=== PATIENT | female | born 1990 ===

== ENCOUNTER 2018-01-18 07:42 | Emergency (ER) | payer OTHER ==
--- NOTE | 2018-01-18 08:33 | C.PDOC ---
History Of Present Illness Angela Roberts is a 27 year old female, lmp 11/13, whose past medical history includes Gravada: 2, Para: 1, who presents to the ED complaining of intermittent suprapubic abdominal pain since this morning. Patient reports she took a home test and was positive. Patient denies vaginal bleeding, urinary symptoms, fever, shortness of breath, chest pain, or other complaints. Time Seen by Provider: 01/18/18 07:53 Chief Complaint (Nursing): Abdominal Pain History Per: Patient History/Exam Limitations: no limitations Onset/Duration Of Symptoms: Hrs (this morning) Current Symptoms Are (Timing): Still Present Location Of Pain/Discomfort: Suprapubic Radiation Of Pain To:: None Associated Symptoms: denies: Fever, Vomiting, Urinary Symptoms Exacerbating Factors: None Alleviating Factors: None Recent travel outside of the [place]: No Abnormal Vaginal Bleeding: No : 2 Para: 1 Past Medical History Reviewed: Historical Data, Nursing Documentation, Vital Signs Vital Signs: Last Vital Signs Temp 98.1 F 01/18/18 12:40 Pulse 75 01/18/18 12:40 Resp 16 01/18/18 12:40 BP 108/78 01/18/18 12:40 Pulse Ox 98 01/18/18 12:40 Family History: States: Unknown Family Hx - Social History Hx Alcohol Use: No Hx Substance Use: No - Immunization History Hx Tetanus Toxoid Vaccination: No Hx Influenza Vaccination: No Hx Pneumococcal Vaccination: No Review Of Systems Constitutional: Negative for: Fever Cardiovascular: Negative for: Chest Pain Respiratory: Negative for: Shortness of Breath Gastrointestinal: Positive for: Abdominal Pain (suprapubic pain ). Negative for : Vomiting Genitourinary: Negative for: Frequency, Vaginal Bleeding Musculoskeletal: Negative for: Back Pain Skin: Negative for: Rash Neurological: Negative for: Headache Physical Exam - Physical Exam Appears: Well, Non-toxic, No Acute Distress Skin: Normal Color, Warm, Dry Head: Atraumatic, Normacephalic Eye(s): bilateral: Normal Inspection, PERRL, EOMI Cardiovascular: Rhythm Regular, No Murmur Respiratory: Normal Breath Sounds, No Rales, No Rhonchi, No Wheezing Gastrointestinal/Abdominal: Bowel Sounds (Normal), Tenderness (tenderness on suprapubic and lower pelvic region), No Distention, No Guarding, No Rebound Neurological/Psych: Oriented x3, Normal Speech ED Course And Treatment - Laboratory Results Result Diagrams: 01/18/18 09:22 01/18/18 09:22 O2 Sat by Pulse Oximetry: 99 (room air) Pulse Ox Interpretation: Normal Medical Decision Making Medical Decision Making: Impression: 27 y/o with tenderness on suprapubic and lower pelvic region c/o suprapubic pain since this morning and states having + home test. Plan: -- Ultrasound -- Labs -- Urinalysis -- Reassess and disposition Progress Notes: 01/18/2018 11:05 Ultrasound: Creator : Cong Funes MD Findings: Uterus: 14.1 x 7.0 x 2.3 centimeters. Heterogeneous echotexture. Anteverted. Cervix measures 3.9 centimeters. Intrauterine gestational sac measuring 5.5 centimeters corresponding to a gestational age of 12 weeks 1 day. Yolk sac measures 6 millimeters. [place]-rump length measures 5.53 centimeters corresponding to a gestational age of 12 weeks 1 day. heart rate of 144 beats per minute. Right ovary: 4.0 x 2.9 x 3.7 centimeters. Normal flow. Hypoechoic cyst measuring 2.4 x 1.8 x 2.4 centimeters. Left ovary measures 2.1 x 1.7 x 2.3 centimeters. Normal flow. Placenta appears somewhat low lying. Clinical correlation. Impression: Single viable intrauterine corresponding to a gestational age 12 weeks 1 day by crown-rump length of 5.53 centimeters. heart beat of 144 bpm. 2.4 centimeter right ovarian cyst. Placenta appears somewhat low lying. Clinical correlation. Limited 1st trimester ultrasound for viability purposes only. Continued interval followup with serial ultrasound, serial HCG levels, and gynecological consultation would be helpful if clinically indicated. Disposition Counseled Patient/Family Regarding: Studies Performed, Diagnosis, Rx Given - Disposition Referrals: [facility] [Outside] [facility] [Outside] Disposition: HOME/ ROUTINE Disposition Time: 12:16 Condition: GOOD Additional Instructions: Busque un gineclogo y shivam el seguimiento lo antes posible; samaria est en delong margarita semestre, 12 semanas. Llame a la clnica para programar tony jadiel. Emmanuel un informe de ultrasonido cuando vayas a nir al gineclogo. Se recomienda el descanso plvico, nada en la vagina, sin sexo, sin tampones, sin duchas vaginales. Lalita mayor cantidad de lquidos [place] antibiticos para las infecciones de orina segn lo prescrito. Regrese a la lucio de emergencias por cualquier sntoma peor, sangrado vaginal o cualquier otra preocupacin. Please find a rn family practice and follow up as soon as possible- you are almost in your second semester- 12 weeks . Call clinic for appointment. Bring ultrasound report with your when you go see rn family practice. Pelvic rest recommended- nothing in vagina, no sex, no tampons, no douching. Drink increased fluids. Take antibiotics for urine infections as prescribed. Return to ER for any worse symptoms, vaginal bleeding or any other concerns. Prescriptions: Nitrofurantoin Macrocrystals [Macrobid] 100 mg PO BID #14 cap Instructions: Urinary Tract Infection, Adult (DC), Threatened Miscarriage (DC) Forms: General Discharge Instructions, [facility] (Guyanese), [facility] (Maltese) Print Language: PERUVIAN - Clinical Impression Clinical Impression: Urinary tract infection, Threatened - Scribe Statement The provider has reviewed the documentation as recorded by the Gisele Solizibe Attestation: Jessica Estrada MD Scribe Attestation: All medical record entries made by the Scribe were at my direction and personally dictated by me. I have reviewed the chart and agree that the record accurately reflects my personal performance of the history, physical exam, medical decision making, and the department course for this patient. I have also personally directed, reviewed, and agree with the discharge instructions and disposition.
[2018-01-18 09:04] LABS: SQUAMOUS EPITHIAL 7 /hpf (0-5); URINE BACTERIA RARE (<OCC); URINE BILIRUBIN NEGATIVE (NEGATIVE); URINE BLOOD NEGATIVE (NEGATIVE); URINE CLARITY Hazy (Clear); URINE COLOR Yellow (YELLOW); URINE GLUCOSE (UA) NORMAL (Normal); URINE LEUKOCYTE ESTERASE 3+ Leu/uL (Negative); URINE NITRATE NEGATIVE (NEGATIVE); URINE PROTEIN NEGATIVE (NEGATIVE); URINE UROBILINOGEN NORMAL mg/dL (0.2-1.0)
[2018-01-18 09:26] LABS: BASO % 0.5 % (0.0-2.0); EOS % 0.5 % (0.0-4.0); HEMOGLOBIN 11.6 g/dL (11.0-16.0); LYMPH # 2.3 K/uL (1.0-4.3); LYMPH % 26.5 % (20.0-40.0); MEAN CELL VOLUME 80.8 fL (81.0-99.0); MEAN CORPUSCULAR HEMOGLOBIN 27.3 pg (27.0-31.0); MEAN CORPUSCULAR HGB CONC 33.7 g/dL (33.0-37.0); MEAN PLATELET VOLUME 7.4 fL (7.2-11.7); MONO # 0.7 K/uL (0.0-0.8); MONO % 7.6 % (0.0-10.0); NEUT # 5.6 K/uL (1.8-7.0); NEUT % 64.9 % (50.0-75.0); RBC 4.24 Mil/uL (3.80-5.20); WHITE BLOOD COUNT 8.7 K/uL (4.8-10.8)
[2018-01-18 09:39] LABS: ALBUMIN 3.8 g/dL (3.5-5.0); ALT/SGPT 26 U/L (9-52); AST/SGOT 22 U/L (14-36); BLOOD UREA NITROGEN 7 mg/dL (7-17); GFR AFRICAN-AMERICAN > 60; GFR NON-AFRICAN AMERICAN > 60
--- NOTE | 2018-01-18 11:07 | US ---
Pelvic ultrasound History: . Pelvic pain. Comparison: None available. Technique: Real-time sonography was performed through the pelvis utilizing transabdominal technique. Findings: Uterus: 14.1 x 7.0 x 2.3 centimeters. Heterogeneous echotexture. Anteverted. Cervix measures 3.9 centimeters. Intrauterine gestational sac measuring 5.5 centimeters corresponding to a gestational age of 12 weeks 1 day. Yolk sac measures 6 millimeters. [place]ad-rump length measures 5.53 centimeters corresponding to a gestational age of 12 weeks 1 day. heart rate of 144 beats per minute. Right ovary: 4.0 x 2.9 x 3.7 centimeters. Normal flow. Hypoechoic cyst measuring 2.4 x 1.8 x 2.4 centimeters. Left ovary measures 2.1 x 1.7 x 2.3 centimeters. Normal flow. Placenta appears somewhat low lying. Clinical correlation. Impression: Single viable intrauterine corresponding to a gestational age 12 weeks 1 day by crown-rump length of 5.53 centimeters. heart beat of 144 bpm. 2.4 centimeter right ovarian cyst. Placenta appears somewhat low lying. Clinical correlation. Limited 1st trimester ultrasound for viability purposes only. Continued interval followup with serial ultrasound, serial HCG levels, and gynecological consultation would be helpful if clinically indicated.
[2018-01-18 12:55] VITALS: BP 108/78; PULSE 75; RESP 16; TEMP 98.1
[2018-01-18 19:20] VITALS: O2SAT 99
== END 2018-01-18 12:45 | disposition home or self-care (01) ==
LOC: C.ER 07:42
DX: O23.41 Unspecified infection of urinary tract in pregnancy, first trimester (principal); O20.0 Threatened abortion; Z3A.12 12 weeks gestation of pregnancy